=== PATIENT | male | born 1980 | race Caucasian/White ===

== ENCOUNTER 2017-05-12 23:32 | Inpatient (IN) | payer MEDICAID ==
[~2017-05-12] VITALS: Ht 175.3 cm; Wt 104.5 kg
[2017-05-13 01:31] LABS: BASOPHIL % 0.4 % (0-2); PLATELET COUNT 324 x10^3mcL (130-400); RED CELL DISTRIBUTION WIDTH 14.1 % (11.5-14.5)
[2017-05-13 01:39] LABS: CALCIUM 8.9 mg/dL (8.5-10.1); CARBON DIOXIDE 27.8 mmol/L (21-32); CHLORIDE SERUM 106 mmol/L (98-107); CREATININE SERUM 0.8 mg/dL (0.7-1.3); GFR1 > 60 mL/min; GLUCOSE SERUM 98 mg/dL (74-106); POTASSIUM SERUM 3.4 mmol/L (3.5-5.1); SODIUM SERUM 143 mmol/L (136-145)
[2017-05-13 01:43] LABS: ALKALINE PHOSPHATASE 64 U/L (46-116); ALT/SGPT 79 U/L (16-63); AST/SGOT 35 U/L (15-37); BILIRUBIN TOTAL 0.61 mg/dL (0.20-1.00); TOTAL PROTEIN, SERUM 6.8 g/dL (6.4-8.2)
[2017-05-13 01:48] LABS: ALBUMIN 2.5 g/dL (3.4-5.0)
[2017-05-13 05:25] LABS: UA SPECIFIC GRAVITY 1.025 (1.005-1.035); microscopic required? YES; urine erythrocyte NEGATIVE (NEGATIVE)
[2017-05-13 05:34] LABS: CHOLESTEROL/HDL RATIO 5.8; MAGNESIUM 1.9 mg/dL (1.8-2.4); PHOSPHOROUS 3.9 mg/dL (2.5-4.9); T3 TOTAL 1.15 ng/mL
[2017-05-13 05:36] LABS: AMPHETAMINE QUAL UR NONE DETECTED (NEG <=1000)
[2017-05-13 05:39] LABS: FREE T4 1.58 ng/dL (0.76-1.46); FREE THYROXINE INDEX 3.2 ug/dL (1.4-4.5); T4(THYROXINE) 8.1 ug/dL (4.7-13.3)
[2017-05-13 09:34] VITALS: BP 105/66
[2017-05-13 12:35] VITALS: BP 128/85
[2017-05-13 12:50] VITALS: BP 126/83
[2017-05-13 16:30] VITALS: BP 116/77
[2017-05-13 19:15] VITALS: BP 113/79
[2017-05-14 02:15] VITALS: BP 113/73
[2017-05-14 05:40] VITALS: BP 112/73
[2017-05-14 06:30] LABS: BASOPHIL % 0.3 % (0-2); PLATELET COUNT 349 x10^3mcL (130-400); RED CELL DISTRIBUTION WIDTH 14.2 % (11.5-14.5)
[2017-05-14 06:44] LABS: CALCIUM 8.7 mg/dL (8.5-10.1); CARBON DIOXIDE 27.9 mmol/L (21-32); CHLORIDE SERUM 104 mmol/L (98-107); CREATININE SERUM 0.8 mg/dL (0.7-1.3); GFR1 > 60 mL/min; GLUCOSE SERUM 96 mg/dL (74-106); POTASSIUM SERUM 3.8 mmol/L (3.5-5.1); SODIUM SERUM 140 mmol/L (136-145)
[2017-05-14 09:06] VITALS: BP 113/71
[2017-05-14 12:02] VITALS: BP 111/70
[2017-05-14 19:45] VITALS: BP 106/68
[2017-05-15 05:48] VITALS: BP 108/76
[2017-05-15 06:14] LABS: BASOPHIL % 0.2 % (0-2); PLATELET COUNT 298 x10^3mcL (130-400)
[2017-05-15 06:40] LABS: CALCIUM 8.4 mg/dL (8.5-10.1); CARBON DIOXIDE 29.3 mmol/L (21-32); CHLORIDE SERUM 105 mmol/L (98-107); CREATININE SERUM 0.7 mg/dL (0.7-1.3); GFR1 > 60 mL/min; GLUCOSE SERUM 88 mg/dL (74-106); POTASSIUM SERUM 4.2 mmol/L (3.5-5.1); SODIUM SERUM 141 mmol/L (136-145)
[2017-05-15 06:58] LABS: RED CELL DISTRIBUTION WIDTH 14.6 % (11.5-14.5)
[2017-05-15 08:45] VITALS: BP 116/73
[2017-05-15 12:35] VITALS: BP 103/70
[2017-05-15 17:19] VITALS: BP 104/69
[2017-05-15 19:27] VITALS: BP 122/81
[2017-05-16 06:13] VITALS: BP 123/80
[2017-05-16 06:44] LABS: BASOPHIL % 0.4 % (0-2); PLATELET COUNT 294 x10^3mcL (130-400); RED CELL DISTRIBUTION WIDTH 14.2 % (11.5-14.5)
[2017-05-16 06:53] LABS: CALCIUM 8.4 mg/dL (8.5-10.1); CARBON DIOXIDE 28.6 mmol/L (21-32); CHLORIDE SERUM 104 mmol/L (98-107); CREATININE SERUM 0.7 mg/dL (0.7-1.3); GFR1 > 60 mL/min; GLUCOSE SERUM 76 mg/dL (74-106); PHOSPHOROUS 3.6 mg/dL (2.5-4.9); POTASSIUM SERUM 3.9 mmol/L (3.5-5.1); SODIUM SERUM 141 mmol/L (136-145)
[2017-05-16 08:46] VITALS: Ht 175.3 cm; Wt 104.5 kg
[2017-05-16 09:58] VITALS: BP 101/59
[2017-05-16] MEDS ORDERED: LEVAQUIN750 MG PO (12:25)
[2017-05-16] MEDS ORDERED: LAC PO (12:27)
[2017-05-16] MEDS ORDERED: FLA500 PO (12:27)
[2017-05-16] MEDS ORDERED: IBUPROFEN600 MG PO (12:29)
[2017-05-16 12:38] VITALS: BP 101/59
[2017-05-16 13:03] VITALS: BP 114/79
== END 2017-05-16 15:10 | disposition home or self-care (01) | DRG 225 ==
LOC: ED 23:32 → DU 05-13 04:41 → MU 05-16 08:56
PROVIDERS: Emergency Medicine; Family Medicine; Surgery
PROC: 0DTJ0ZZ Resection of Appendix, Open Approach (ICD-10-PCS; principal; 2017-05-13 12:30)
DX: K35.2 Acute appendicitis with generalized peritonitis (principal); N17.0 Acute kidney failure with tubular necrosis; E43 Unspecified severe protein-calorie malnutrition; E87.6 Hypokalemia; Z68.34 Body mass index [BMI] 34.0-34.9, adult; E66.9 Obesity, unspecified; R73.03 Prediabetes; D64.9 Anemia, unspecified
CPT/HCPCS: 83880; 84439; 94150; J0330; J0690; J1170; J2250; J2270; J2405; J2543; J2704; J2710; J3010; J3490; J7030; J7120; Q0092; Q9967